=== PATIENT | male | born 1960 | race Caucasian/White ===

== ENCOUNTER 2024-09-01 02:51 | Inpatient (IN) | payer BC, SELFPAY ==
[2024-08-31 19:58] VITALS: BP 114/90
[2024-08-31 20:32] LABS: Hematocrit 39.3 % (39.0-52.0); Hemoglobin 13.4 g/dL (13.0-18.0); Mean Corp Hgb Conc. 34.1 g/dL (33.0-37.0); Mean Corpuscular Volume 91.4 fL (80.0-94.0); Nucleated Red Blood Cells % 0 % (-); Platelet Count 178 10^3/uL (130-400); Red Cell Dist. Width 12.5 % (11.5-14.5)
[2024-08-31 21:00] LABS: Troponin I < 0.012 ng/ml
--- NOTE | 2024-08-31 21:39 | ED.GENMED ---
History of Present Illness
General
Chief Complaint: Breathing Problem
Source: patient
Exam Limitations: none
Time Seen by Provider: 08/31/24 21:33
History of Present Illness
History of Present Illness:
64yoM with a history of chronic back pain presenting for evaluation of shortness of breath. Symptoms began 1 week ago. He reports being short of breath while at work causing him to go home from work early. He initially thought his symptoms were
related to alcohol use as he drank more alcohol He has had intermittent bouts of dyspnea throughout the week and again felt short of breath this morning. He denies any associated chest pain, dizziness, syncope, leg swelling.
Past History
Past History
ED Past Medical History: Other (BACK PAIN)
Social History
Tobacco: Non-smoker
Alcohol: Occasional
Drug: None
Personal: Single
Living: with family
Employment: Employed
Phy Exam
General Physical Exam
General Presentation: well appearing and no apparent distress
General Skin: warm and dry
General Habitus: normal
General Mental: alert
ENT Exam
ENT Exam: normocephalic
Cardiovascular Exam
Cardiovascular Exam: no edema, no murmur, normal peripheral pulses (2+ radial and DP pulses bilaterally) and irregularly irregular
Pulmonary Exam
Pulmonary Exam: lungs clear, no respiratory distress, no rales, no crackles, no rhonchi and no wheezing
Neurological Exam
Neurological Exam: alert
[place] Coma Scale
Eye Opening: Spontaneous
Verbal Response: Oriented
Motor Response: Obeys Commands
GCS Total Score: 15
Skin Exam
Skin Exam: normal color and warm/dry
Psychiatric Exam
Psychiatric Exam: normal mood/affect
Scores
Heart Failure Risk
Heart Failure Risk Score: Not Applicable
Course
Orders/Labs/Results
Orders:
Orders
08/31/24 19:56
Electrocardiogram (*1) Urgent
Reason for Study: Shortness of Breath
EKG- Treatment ONCE
08/31/24 20:02
CR Chest - 2 Views Urgent
Comment:
Reason For Exam: SOB
08/31/24 20:14
BNP [NT-proBNP] Urgent
Complete Blood Count/With Diff Urgent
Comprehensive Metabolic Panel Urgent
Magnesium Urgent
TSH Reflex To Free T4 Urgent
Troponin I Urgent
08/31/24 21:52
Cardiac Monitoring- Treatment ONCE
0.9% Sodium Chloride 1000 ml [Nss] 1,000 ml IV BOLUS
08/31/24 21:58
Metoprolol [Lopressor] 5 mg IV NOW STA
08/31/24 23:25
Metoprolol [Lopressor] 25 mg PO NOW STA
Abnormal Lab Results
08/31/24
20:14
RBC 4.30 L 10^6/uL
(4.70-6.10)
MCH 31.2 H pg
(27.0-31.0)
MPV 11.9 H fL
(7.4-10.4)
Absolute Monos (auto) 0.7 H 10^3/uL
(0.1-0.6)
Monocytes % 10.7 H %
(1.7-9.3)
Chloride 110 H mmol/L
(98-107)
BUN 24 H mg/dl
(9-20)
Glucose 112 H mg/dl
(70-99)
08/31/24 20:14
08/31/24 20:14
Vital Signs
Initial and Last Documented VS:
Initial Vital Signs
Temp Pulse Resp BP Pulse Ox
98.0 F 123 20 114/90 97
08/31/24 19:58 08/31/24 19:58 08/31/24 19:58 08/31/24 19:58 08/31/24 19:58
Last Documented Vital Signs
Temp Pulse Resp BP Pulse Ox
98.0 F 100 18 127/88 97
08/31/24 19:58 08/31/24 23:37 08/31/24 23:15 08/31/24 23:37 08/31/24 23:15
MDM/Problems Addressed
Differential Diagnosis Includes:
64yoM here with intermittent SOB x 1 week. No significant PMH. HR 123 on arrival. EKG from triage shows atrial flutter. No prior history of this. BP stable. He is well appearing and resting comfortably. No signs of volume overload on exam.
Differential diagnosis includes but is not limited to: Arrhythmia, thyroid dysfunction, electrolyte abnormality
Workup initiated in triage. Electrolytes and TSH within normal limits. Troponin undetectable. Chest x-ray is clear without pulmonary edema. IV Lopressor given for rate control as well as a dose of PO metoprolol. Will admit for further
management.
*Pulse Oximetry
SaO2: 97
Oxygen Mode of Delivery: Room air
Patient hypoxic: no (97%)
*EKG
Interpreted by ED Provider?: Yes
EKG Intrepretation Date: 08/31/24
Heart Rate: 114
Rate: tachycardiac
Rhythm: atrial flutter
[place]: normal axis
QRS Pattern: normal QRS
Ischemia: non-specific ST changes
*Critical Care Note
Total Time (30-74mins, 75-104mins- exclusive of procedures): Not Applicable
ED Attending Note
-
Portions of this chart may have been created with voice recognition software.� Occasional wrong word or��sound alike� substitutions may have occurred due to the inherent limitations of voice recognition software.
Discharge Plan
Departure
Patient Disposition: Admit
Presentation/result/management discussed w/ accepting MD/DO: Hospitalist
Discharge Problem:
New onset atrial flutter
Prescriptions:
No Action
cyclobenzaprine 10 MG tablet
10 mg PO TIDPRN PRN (Reason: pain)
cetirizine 10 MG tablet
10 mg PO DAILY
ibuprofen 800 MG tablet
800 mg PO DAILYPRN PRN (Reason: pain)
fluticasone propionate 1 SPRAY spray,suspension
1 spray intranasal DAILY
melatonin 10 MG capsule
10 mg PO HS
ascorbic acid (vitamin C) 500 MG capsule
500 mg PO DAILY
Referrals:
Charan Byers DO [Family Provider, Family Practice]
Interventions
Interventions:
*Risk Screen - Suicide Last Done: 08/31/24 23:10
*General Assessment Last Done: 08/31/24 19:58
*Neglect/Abuse Screening Last Done: 08/31/24 23:10
*ED- Fall Risk Assessment Last Done: 08/31/24 23:10
*ED COVID-19 Vaccine History Last Done: 08/31/24 23:10
*Nursing Disposition Last Done: 08/31/24 23:20
ED- Cardiac Assessment Last Done: 08/31/24 23:10
ED- Pulmonary Assessment Last Done: 08/31/24 23:10
Discharge Date and Time
Discharge Date/Time: 08/31/24 23:21
Print Language: UKRAINIAN
[2024-08-31 21:47] LABS: ALT (SGPT) 35 U/L (0-50); AST (SGOT) 27 U/L (17-59); Albumin 4.5 g/dl (3.5-5.0); Alkaline Phosphatase 48 U/L (38-126); Blood Urea Nitrogen 24 mg/dl (9-20); Calcium 9.6 mg/dl (8.4-10.2); Carbon Dioxide 27 mmol/L (22-30); Chloride 110 mmol/L (98-107); Glucose 112 mg/dl (70-99); Magnesium 2.2 mg/dl (1.6-2.3); Potassium 4.3 mmol/L (3.5-5.1); Sodium 141 mmol/L (135-145); Total Protein 7.0 g/dl (6.3-8.2); eGFR > 60.00
[2024-08-31 21:55] VITALS: BP 136/116
[2024-08-31 22:00] VITALS: BP 107/83; BP 127/88
[2024-08-31] MEDS: NSS 1000 IV (23:04)
[2024-08-31] MEDS: LOPRESSOR 5 MG IV (23:05)
[2024-08-31 23:08] VITALS: BMI 28.7
[2024-08-31] MEDS: LOPRESSOR 25 MG PO (23:37)
--- NOTE | 2024-09-01 02:23 | HPS.HSE ---
Family Physician
-
Family Physician: Charan Byers
Chief Complaint
-
Palpitations, SOB
History of Present Illness
Patient is a 64y M with no significant PMH who presents to ED complaining of palpitations, SOB and lightheadedness. Patient states that his symptoms initially started about one week ago. 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 He initially attributed his symptoms to heat / fatigue; however, they continued to occur even on cooler days / after dark. he reports sensation of lightheadedness / 'seeing spots', diaphoresis, racing heartbeat and SOB
with activity. His symptoms improve with rest and then recur with exertion. He had increasing frequency and severity of episodes throughout the weekend. This AM his symptoms occurred again and he presented to the ED for further evaluation,.
In the ED patient is noted to be in A-Flutter with variable AV block.
He has no prior history of A-Fib / A-Flutter.
Patient does note that he was on vacation at the [place] 2 weeks ago (just prior to symptom onset) and drank more alcohol than usual while on vacation.
He also underwent LESI on Saturday (at [facility]) for chronic back pain.
Medical History
Past Medical History
Past Medical History: Reports None
Additional Past Medical History:
Lumbar DDD
Past Surgical History: Reports Other
Additional Past Surgical History:
Knee Arthroscopy
Left Shoulder Surgery
Bilateral Hernia Repairs
Social History
Tobacco: Non-smoker
Alcohol: Occasional
Drug: None
Family History
Family History: Other (Mother: A-Fib)
Allergies / Home Medications
Allergies reflects when Allergies were last updated in [employer].
Home Medications with original date entered in [employer]
Allergy/Medication List:
Allergies
Allergy/AdvReac Type Severity Reaction Status Date / Time
No Known Allergies Allergy Verified 08/31/24 19:57
Home Medications
loratadine 10 mg tablet 10 mg PO DAILY 09/01/24
Review of Systems
-
History Source: Patient
A 12 point ROS was completed and negative except as noted: Yes
Constitutional: Reports Fatigue; Denies Fever or Chills
Respiratory: Reports Trouble Breathing; Denies Cough
Cardiac: Reports Diaphoresis and Palpitations; Denies Chest Pain
Abdomen/GI: Denies Abdominal Pain, Nausea or Vomiting
: Denies Dysuria or Frequency
Musculoskeletal: Denies Edema
Neurological: Reports Dizzy; Denies Headache
Psych: Denies Depression or Anxiety
Physical Exam
Vital Signs
Vital Signs
Temp Pulse Resp BP Pulse Ox
98.0 F 100 18 127/88 97
08/31/24 19:58 08/31/24 23:37 08/31/24 23:15 08/31/24 23:37 08/31/24 23:15
Physical Exam
General: Other (64y M in no acute distress.)
HEENT: Moist mucous membranes and PERRLA
Respiratory: Clear; No Wheezes, Rales or Rhonchi
Cardiac: S1/S2, Irregular Rhythm and Tachycardia; No Murmur
GI: Soft, Non Tender, Non Distended and Normal Bowel Sounds
Musculoskeletal: No Clubbing, No Cyanosis and No Edema
Neuro: AO x 3
Laboratory Results
-
08/31/24 20:14
08/31/24 20:14
Laboratory Results
Total Bilirubin 0.6 mg/dl (0.2-1.3) 08/31/24 20:14
AST 27 U/L (17-59) 08/31/24 20:14
ALT 35 U/L (0-50) 08/31/24 20:14
Alkaline Phosphatase 48 U/L (38-126) 08/31/24 20:14
Troponin I < 0.012 ng/ml 08/31/24 20:14
Impression/Plan
-
A/P: Patient is a 64y M with PMH significant for lumbar DDD who presents to ED complaining of one week of intermittent palpitations, lightheadedness and dyspnea with exertion.
Atrial Flutter with Variable AV Block
- Admit for further evaluation and treatment.
- Rates hovering around 100bpm after metoprolol IV and PO doses in the ED.
- Patient declines anticoagulation at this time - even in short term.
- Discussed potential for cardioversion and he also seems averse to this.
- Monitor on tele overnight.
- Continue metoprolol for rate control and adjust dose as needed.
- Echo in AM.
- Cardiology eval in AM for additional discussion / recommendations.
DVT Prophylaxis: SCDs
Code Status: Full
[2024-09-01 04:01] VITALS: BP 142/87
[2024-09-01] MEDS: NSS 1000 IV (05:05)
[2024-09-01 07:12] LABS: Hematocrit 40.6 % (39.0-52.0); Hemoglobin 13.3 g/dL (13.0-18.0); Mean Corp Hgb Conc. 32.8 g/dL (33.0-37.0); Mean Corpuscular Volume 93.5 fL (80.0-94.0); Platelet Count 164 10^3/uL (130-400); Red Cell Dist. Width 12.5 % (11.5-14.5)
[2024-09-01 07:16] VITALS: BP 133/91
--- NOTE | 2024-09-01 07:23 | W.PN.HOSP.TC ---
Today's Communication/Plan
-
NPO after midnight for ELIEZER cardioversion tomorrow
Assessment / Plan
Assessment / Plan
Physical Exam
General: Other (64y M in no acute distress.)
HEENT: Moist mucous membranes
Respiratory: Clear to Auscultation Bilaterally
Cardiac: S1/S2, Irregular Rhythm
GI: Soft, Non Tender, Non Distended and Normal Bowel Sounds
Musculoskeletal: No Cyanosis and No Edema
Neuro: AO x 3
Assessment/Plan
64y M with no significant PMH who presented to [facility] ED complaining of palpitations, shortness of breath and lightheadedness. Patient stated that his symptoms initially started about one week prior to presentation. 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 He initially attributed his symptoms to heat / fatigue; however, they continued to occur even on cooler days / after dark. He reported sensation of lightheadedness / 'seeing spots', diaphoresis,
racing heartbeat and shortness of breath with activity. His symptoms improve with rest and then recur with exertion. He had increasing frequency and severity of episodes throughout the weekend prior to presentation. On 08/31/24 morning, his
symptoms occurred again and he presented to the [facility] ED for further evaluation. In the [facility] ED, patient was noted to be in A-Flutter with variable AV block. He has no prior history of A-Fib / A-Flutter. Patient does note that he was on vacation at
the [place] 2 weeks prior to presentation (just prior to symptom onset) and drank more alcohol than usual while on vacation. He also underwent LESI on Wednesday August 28, 2024 (at [facility]) for chronic back pain.
Presentation with one week history of intermittent palpitations, lightheadedness and dyspnea with exertion
Atrial Flutter with Variable AV Block
- Rates hovering around 100bpm after metoprolol IV and PO doses in the ED.
- Eliquis started
- Patient is agreeable for ELIEZER cardioversion tomorrow morning as anesthesia unavailable this afternoon.
- Monitor on tele
- NPO after midnight
- Continue metoprolol for rate control and adjust dose as needed.
- Echo in AM.
- Cardiology eval in AM for additional discussion / recommendations.
History of Lumbar DDD
History of Knee Surgery
DVT Prophylaxis: SCDs. Eliquis.
Code Status: Full Code
Anticipated Discharge: 24 - 48 hours
Subjective/Interval History
-
Date of Service: September 01, 2024
Patient was seen and examined. He reported feeling okay, denied chest pain or any other complaints or symptoms.
Objective Data
-
Labs:
Laboratory Results
08/31/24 09/01/24
20:14 06:38
WBC 6.9 5.7
Hgb 13.4 13.3
Hct 39.3 40.6
Plt Count 178 164
Sodium 141 Pending
Potassium 4.3 Pending
Chloride 110 H Pending
Carbon Dioxide 27 Pending
BUN 24 H Pending
Creatinine 0.9 Pending
Glucose 112 H Pending
Calcium 9.6 Pending
Total Bilirubin 0.6
AST 27
ALT 35
Alkaline Phosphatase 48
Vital Signs:
Vital Signs
Temp Pulse Resp BP Pulse Ox
97.8 F 68 20 142/87 97
09/01/24 04:01 09/01/24 04:01 09/01/24 04:01 09/01/24 04:01 09/01/24 04:01
[2024-09-01] MEDS: LOPRESSOR 25 MG PO ×3 (07:24→22:12)
[2024-09-01 07:56] LABS: Blood Urea Nitrogen 20 mg/dl (9-20); Calcium 9.1 mg/dl (8.4-10.2); Carbon Dioxide 24 mmol/L (22-30); Chloride 111 mmol/L (98-107); Estimated Creatinine Clearance 93 ml/min; Glucose 101 mg/dl (70-99); HDL Cholesterol 41 mg/dl; LDL Cholesterol, Calculated 103 mg/dl; Magnesium 2.1 mg/dl (1.6-2.3); Potassium 4.5 mmol/L (3.5-5.1); Sodium 141 mmol/L (135-145); Very Low Density Lipoprotein 26 mg/dl (0-30); eGFR > 60.00
[2024-09-01 09:45] LABS: Glycohemoglobin (HgbA1c) 5.7 % (4.0-5.6)
--- NOTE | 2024-09-01 10:15 | CON.CAR ---
Addendum entered and electronically signed by Ludy Corrigan MD 09/01/24 18:41:
I saw and examined the patient.
The Sheet Metal Superintendent's note was reviewed and I agree with the note.
Comment: Patient seen and examined at bedside. Briefly is a 64-year-old gentleman with no significant past medical history other than lumbar disc disease who presented to the emergency room after complaints of palpitations and dyspnea on exertion
along with exertional lightheadedness soon after being away for August 21 weekend after drinking a significant amount alcohol found to be in rapid atrial flutter with RVR. Troponins have been negative. proBNP 311. Normal thyroid function test.
Vital signs and lab work reviewed. On exam patient is well-appearing, no acute distress, tachycardic, regular, normal S1 and S2, lungs are clear to auscultation bilaterally, no JVD PE, abdomen is soft, nontender, nondistended with active bowel
sounds, warm extremities without significant edema
Recommendations:
1. Extensive discussion was had with the patient in regards to what atrial flutter is and its potential risk for stroke and his symptoms likely related to the tachycardia. Plan for ELIEZER cardioversion in the morning. Described the procedure in
detail with the patient reviewing the risk and benefits and patient is agreeable to move forward. Plan to keep him n.p.o. after midnight tonight.
2. Initiated on Eliquis today along with beta-marilee. CHADS2 Vasc score is 0 however given upcoming cardioversion would plan for at least 3 to 4 weeks of full anticoagulation with determination then as an outpatient in case there is concern for
paroxysmal or persistent atrial flutter. I think would benefit from follow-up with electrophysiology as an outpatient with consideration for outpatient monitor if plan is to discontinue Eliquis at some point after a 4-week period.
3. Educated patient in regards to importance of alcohol cessation and at some point getting screened to rule out sleep apnea.
Ludy Corrigan MD, [facility], [facility]
Original Note:
Consultation
Consultation Request
Date/Time Consultation Requested: 09/01/2024
Date/Time Consultation Performed: 09/01/2024
Requesting Provider: Dr. Mcknight
Performing Provider: Nica Rivera PA-C for Dr. Corrigan
Reason for Consultation: Atrial flutter
Medical History
-
History of Present Illness:
Patient is a 64-year-old male with past medical history significant for lumbar disc disease who presented to emergency department on 08/31/2024 with complaints of palpitations, tachycardia, dyspnea on exertion and exertional lightheadedness x 1 week.
He [place] and was in the heat. He drank an 'excessive amount of alcohol' which is very unusual for him and was sitting most days in the hot sun. 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 He initially felt his symptoms were related to being dehydrated with the extreme hot days. Symptoms generally improved with rest but over the last several days have gotten worse
with less level of activity prompting him to come to emergency department for evaluation. He was found to be in atrial flutter with rapid ventricular response. He was given IV metoprolol in emergency department with improvement of heart rate.
Also given fluid bolus. Troponins negative. proBNP 311. TSH 3.03. Patient feels comfortable at rest but still notes palpitations and intermittent lightheadedness when he exerts himself around the room.
He denies any cardiac history.
Past medical history:
Lumbar disc disease
Seasonal allergies
Anxiety
Past Medical History
Past Medical History: Other (See HPI)
Past Surgical History: Orthopedic (Knee arthroscopy, left shoulder surgery) and Other (Bilateral hernia repairs)
Social History
Tobacco: Non-Smoker
Alcohol: Occasional
Drug: None
Personal: Other (Has significant other/girlfriend)
Living: With Family
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
Family History
Family History: Other (Mother with atrial fibrillation)
Allergies / Home Medications
Allergy/AdvReac Type Severity Reaction Status Date / Time
No Known Allergies Allergy Verified 08/31/24 19:57
�Medication �Instructions �Recorded �Confirmed �Type
ascorbic acid (vitamin C) 1,000 mg 1,000 mg PO DAILY 09/01/24 09/01/24 History
tablet (Vitamin C With Maggie Hips)
cyclobenzaprine 10 mg tablet 10 mg PO TID PRN back pain 09/01/24 09/01/24 History
ibuprofen 800 mg tablet 800 mg PO Q8H PRN back pain 09/01/24 09/01/24 History
loratadine 10 mg tablet 10 mg PO DAILY PRN allergies 09/01/24 09/01/24 History
multivitamin 1 tab PO DAILY 09/01/24 09/01/24 History
sertraline 50 mg tablet 50 mg PO DAILY 09/01/24 09/01/24 History
Review of Systems
-
History Source: Patient
All other systems: Negative unless noted
Physical Exam
Vital Signs
Temp Pulse Resp BP Pulse Ox
98.2 F 90 20 133/91 97
09/01/24 07:16 09/01/24 07:16 09/01/24 07:16 09/01/24 07:16 09/01/24 08:00
GEN: No distress, awake, Ox3
HEENT: supple, anicteric, mmm
LUNGS: CTA, no wheezes/rales
CV: Irregularly irregular, S1/S2, 1/6 syst murmur, no rub or gallop
ABD: soft, BS+, NT/ND
EXT: No edema, clubbing or cyanosis
NEURO: Gross non-focal
SKIN: No rash, warm, dry, pink
Lab Results
09/01/24 06:38
09/01/24 06:38
Troponin I < 0.012 ng/ml 08/31/24 20:14
Keh-W-Spyjsokkxst Pept 311 pg/ml 08/31/24 20:14
Impression / Plan
-
Family Physician: Charan Byers
Rocket Engine Component Mechanic: None prior to admission, initial consultation Dr. Corrigan
Impression:
Presented 08/31/2024 with palpitations/rapid heartbeat, dyspnea on exertion and lightheadedness x 1 week.
Atrial flutter with rapid ventricular response, new diagnosis
Lumbar disc disease
Seasonal allergies
Anxiety
Echo 09/01/2024: Pending
Plan:
Presented 08/31/2024 with palpitations/rapid heartbeat, dyspnea on exertion and lightheadedness x 1 week.
Atrial flutter with rapid ventricular response, new diagnosis
-Symptoms [place] drinking daily alcohol
-Heart rates have improved with initiation of low-dose beta-marilee however remains symptomatic upon exertion. Pending heart rate with restorationist of sinus rhythm could consider low-dose long-acting Toprol or diltiazem rather than Lopressor.
-Troponin negative, proBNP unremarkable
-Will check echocardiogram - pending
-Discussed addition of anticoagulation to reduce risk of stroke. Discussed patient will need to remain on for minimum of 4 weeks post cardioversion. [id number] score 0
-Will arrange for ELIEZER cardioversion on 09/02/2024
-Keep n.p.o. after midnight
- Discussed triggers of palpitations/atrial fibrillation flutter, avoidance of triggers including avoiding alcohol, excessive caffeine, staying well-hydrated
Plan discussed with patient, patient's girlfriend at bedside, nursing and hospitalist
Data Reviewed
-
EKG: Report Reviewed by me, Discussed with Physician, Discussed with Nurse, Discussed with Patient and Discussed with Family
Radiology: Report Reviewed by me, Discussed with Physician, Discussed with Nurse, Discussed with Patient and Discussed with Family
Labs: Labs Reviewed by me, Discussed with Physician, Discussed with Nurse, Discussed with Patient and Discussed with Family
Old Records: Reviewed
[2024-09-01 11:25] VITALS: BP 135/93
[2024-09-01] MEDS: ELIQUIS 5 MG PO ×2 (12:19→19:45)
[2024-09-01 15:17] VITALS: BP 124/74
--- NOTE | 2024-09-01 16:35 | CM ---
compensation consulting manager reviewed patient's chart and met with patient and patient lives with his finance, her son and mother, in a multilevel home, patient is independent with adl's and ambulation, no dme, patient drives, plan is to home no needs, cost of
Eliquis is $75 per month, one month free coupon provided to patient.
PCP: Dr Charan Byers
Pharmacy: [facility] in [place]
Plan; Home when stable.
[2024-09-01 19:22] VITALS: BP 130/94
[2024-09-01] MEDS: TYLENOL 650 MG PO (19:45)
[2024-09-01 22:41] VITALS: BP 128/87
[2024-09-02 04:00] VITALS: BP 117/83
[2024-09-02 05:59] VITALS: BMI 27.7
[2024-09-02] MEDS: ELIQUIS 5 MG PO (07:34)
[2024-09-02] MEDS: LOPRESSOR 25 MG PO ×2 (07:34→15:00)
[2024-09-02 07:38] VITALS: BP 121/87
[2024-09-02 08:15] LABS: Blood Urea Nitrogen 14 mg/dl (9-20); Calcium 9.2 mg/dl (8.4-10.2); Carbon Dioxide 25 mmol/L (22-30); Chloride 109 mmol/L (98-107); Estimated Creatinine Clearance 105 ml/min; Glucose 113 mg/dl (70-99); Potassium 4.5 mmol/L (3.5-5.1); Sodium 141 mmol/L (135-145); eGFR > 60.00
[2024-09-02 11:00] VITALS: BP 115/76
--- NOTE | 2024-09-02 11:06 | CM ---
Home when stable, no needs.
Plan; Home no needs when stable.
--- NOTE | 2024-09-02 12:12 | W.PN.HOSP.TC ---
Today's Communication/Plan
-
Discharge today
Assessment / Plan
Assessment / Plan
Physical Exam
General: Other (64y M in no acute distress.)
HEENT: Moist mucous membranes
Respiratory: Clear to Auscultation Bilaterally
Cardiac: S1/S2, Irregular Rhythm
GI: Soft, Non Tender, Non Distended and Normal Bowel Sounds
Musculoskeletal: No Cyanosis and No Edema
Neuro: AO x 3
Assessment/Plan
64y M with no significant PMH who presented to [facility] ED complaining of palpitations, shortness of breath and lightheadedness. Patient stated that his symptoms initially started about one week prior to presentation. 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 He initially attributed his symptoms to heat / fatigue; however, they continued to occur even on cooler days / after dark. He reported sensation of lightheadedness / 'seeing spots', diaphoresis,
racing heartbeat and shortness of breath with activity. His symptoms improve with rest and then recur with exertion. He had increasing frequency and severity of episodes throughout the weekend prior to presentation. On 08/31/24 morning, his
symptoms occurred again and he presented to the [facility] ED for further evaluation. In the [facility] ED, patient was noted to be in A-Flutter with variable AV block. He has no prior history of A-Fib / A-Flutter. Patient [place] (just prior to symptom onset) and drank more alcohol than usual while on vacation. He also underwent LESI on Wednesday August 28, 2024 (at [facility]) for chronic back pain.
Presentation with one week history of intermittent palpitations, lightheadedness and dyspnea with exertion
Atrial Flutter with Variable AV Block
- Rates hovering around 100bpm after metoprolol IV and PO doses in the ED.
- Eliquis started
- ELIEZER cardioversion on 09/02/24: ELIEZER with low normal LVEF, no significant valvular disease, and no thrombus. Successful Cardioversion with one shock at 200 J.
- Monitor on tele
- Continue beta marilee and Eliquis
- Cardiology eval
History of Lumbar DDD
History of Knee Surgery
DVT Prophylaxis: SCDs. Eliquis.
Code Status: Full Code
More than 30 minutes spent in discharge including
Final examination of the patient
Summarizing hospital stay
Instructions for continuing care to all relevant caregivers
Preparation of discharge records, prescriptions, and referral forms
Total time spent (in minutes): 40
Anticipated Discharge: Today
Subjective/Interval History
-
Date of Service: September 02, 2024
Patient was seen and examined. He denied any chest pain, shortness of breath or any other symptoms or complaints.
Objective Data
-
Labs:
Laboratory Results
09/02/24
07:13
Sodium 141
Potassium 4.5
Chloride 109 H
Carbon Dioxide 25
BUN 14
Creatinine 0.8
Glucose 113 H
Calcium 9.2
Vital Signs:
Vital Signs
Temp Pulse Resp BP Pulse Ox
98.4 F 83 20 115/76 97
09/02/24 11:00 09/02/24 11:00 09/02/24 11:00 09/02/24 11:00 09/02/24 11:00
I&O
09/01/24 09/02/24 09/03/24
06:59 06:59 06:59
Intake Total 480 / 480
Balance 480 / 480
--- NOTE | 2024-09-02 13:47 | W.PN.CARDCBS ---
Addendum entered and electronically signed by José Edwards MD 09/02/24 18:10:
I saw and examined the patient.
The Record Tabulating Clerk's note was reviewed and I agree with the note.
Comment:
GEN: No distress, awake, Ox3
HEENT: supple, anicteric, mmm
LUNGS: CTA, no wheezes/rales
CV: Reg, S1/S2, 1/6 syst LSB, no murmur
ABD: soft, BS+, NT/ND
EXT: No edema
NEURO: Gross non-focal
SKIN: No rash
PLan:
Results of ELIEZER/CV reviewed with patient. He is back in sinus rhythm with no further A-flutter. Will discharge on Toprol 50 mg daily and Eliquis 5 mg p.o. twice daily.
Discussed avoiding possible triggers for A-fib/flutter
We agreed if he has further episodes of a flutter would consider ablation at that time. Will arrange follow-up
Original Note:
Today's Communication / Plan
-
D/C to home
Work note and coupon card given to patient
Impression / Plan
-
Family Physician: Charan Byers
[employer] Services Manager: None prior to admission, initial consultation Dr. Corrigan
Impression:
Presented 08/31/2024 with palpitations/rapid heartbeat, dyspnea on exertion and lightheadedness x 1 week.
Atrial flutter with rapid ventricular response, new diagnosis
Lumbar disc disease
Seasonal allergies
Anxiety
Echo 09/01/2024: EF 50%, trace MR trace TR
ELIEZER 09/02/2024: Preliminary report preserved EF without JAE thrombus
Plan:
-Patient admitted with newly diagnosed paroxysmal atrial flutter and RVR.
-Patient had successful ELIEZER/CV on 09/02/2024
-[id number] score is 0 and patient will complete 1 month of OAC and can use the free sample card from Eliquis
-New to Eliquis 5 mg twice daily (age 64, Cre 0.8), E scribed to his pharmacy by me
-Patient is also new to Toprol XL 50 mg daily, E scribed to his pharmacy by me
-EF preserved by echo and ELIEZER
-Patient is considering following up with Dr. Cee at [facility] because that is his mother's ceo & board director, but he is also considering following up locally with Dr. Edwards
-Patient is stable for discharge to home
Progress Note - C[employer] And [employer] Services Manager
Subjective
Date of Service: September 02, 2024
Feels well, no more palpitations
Objective
Labs:
09/01/24 06:38
09/02/24 07:13
Labs
Hgb 13.3 g/dL (13.0-18.0) 09/01/24 06:38
Hct 40.6 % (39.0-52.0) 09/01/24 06:38
Plt Count 164 10^3/uL (130-400) 09/01/24 06:38
Sodium 141 mmol/L (135-145) 09/02/24 07:13
Potassium 4.5 mmol/L (3.5-5.1) 09/02/24 07:13
BUN 14 mg/dl (9-20) 09/02/24 07:13
Creatinine 0.8 mg/dL (0.7-1.3) 09/02/24 07:13
Glucose 113 mg/dl (70-99) H 09/02/24 07:13
Troponins
08/31/24
20:14
Troponin I < 0.012
Vital Signs and I&O:
Vital Signs
Temp Pulse Resp BP Pulse Ox
98.4 F 83 20 115/76 97
09/02/24 11:00 09/02/24 11:00 09/02/24 11:00 09/02/24 11:00 09/02/24 11:00
Vital Signs
Temp Pulse Resp BP Pulse Ox
98.4 F 83 20 115/76 97
09/02/24 11:00 09/02/24 11:00 09/02/24 11:00 09/02/24 11:00 09/02/24 11:00
Intake & Output
08/31/24 09/01/24 09/02/24 09/03/24
06:59 06:59 06:59 06:59
Intake Total 480 / 480
Balance 480 / 480
Physical Exam
Physical Exam
GEN: AAOx3
LUNGS: RA
CV: SR
--- NOTE | 2024-09-02 14:22 | W.DCSUMMARY ---
Discharge Summary
Discharge Data
Date of Admission: 09/01/24
Date of Discharge: 09/02/24
Total time spent discharging patient (in min): 40
-
Pending Results: No
Hospital Course
64 y/o male with with no significant past medical history who presented to the [facility] ED complaining of palpitations, shortness of breath and lightheadedness. Patient was found to have atrial flutter with rapid ventricular response. Patient was
started on Eliquis and beta marilee. On 09/02/24, ELIEZER showed low normal LVEF, no significant valvular disease, and no thrombus. Patient had successful synchronized direct current cardioversion performed with one shock at 200 joules.Patient was
feeling better and stable for discharge.
Discharge Plan
-
Patient Disposition: Home (Routine Discharge)
Discharge Diagnosis/Procedures: Presentation with one week history of intermittent palpitations, lightheadedness and dyspnea with exertion
Atrial Flutter with Variable AV Block status post ELIEZER with low normal LVEF, no significant valvular disease, and no thrombus, and successful Cardioversion with one shock at 200 J.
History of Lumbar Degenerative Disc Disease
History of Knee Surgery
Condition: Good
Diet: Low Fat, Low Cholesterol and Low Sodium
Activity: As tolerated
Driving Restrictions: No driving for 24 hours
Activity Restrictions/Additional Instructions:
You will need to follow-up with salesperson hosiery (within 1 month) to determine how long you need to continue Eliquis and plan going forward.
Alcohol cessation as discussed
At some point, you will need getting screened to rule out sleep apnea
Stand Alone Forms: Return to Work
Referrals:
Charan Byers DO [Family Provider, Family Practice] - in less than 1 week
José Edwards MD [Active, Cardiology] - in three to four weeks
Referral Note: Hospital Follow-Up of Cardioversion
Additional Discharge Medication Instructions: Metoprolol Succinate 50 mg daily and Eliquis 5 mg BID are new medications
Prescriptions:
New
Eliquis 5 mg Tablet
5 mg PO BID Qty: 60 11RF
metoprolol succinate [Toprol XL] 50 mg tablet extended release 24 hr
50 mg PO DAILY Qty: 30 11RF
Continued
loratadine 10 mg Tablet
10 mg PO DAILY PRN (Reason: allergies)
multivitamin Tablet
1 tab PO DAILY
cyclobenzaprine 10 mg Tablet
10 mg PO TID PRN (Reason: back pain)
ascorbic acid (vitamin C) [Vitamin C With Maggie Hips] 1,000 mg Tablet
1,000 mg PO DAILY
sertraline 50 mg Tablet
50 mg PO DAILY
Discontinued
ibuprofen 800 mg Tablet
800 mg PO Q8H PRN (Reason: back pain)
Discharge Orders:
Discharge Patient (As Directed); Ordered 09/02/24
Ordered By: Darnell Kothari
Discharge Date and Time
Discharge Date/Time: 09/02/24 16:14
Print Language: SYRIAC
[2024-09-02 14:45] VITALS: BP 120/78
== END 2024-09-02 16:14 | disposition home or self-care (01) | DRG 310 ==
LOC: 4 WEST ACU 02:51
PROVIDERS: Emergency Medicine; Student in an Organized Health Care Education/Training Program; ADMITTING PHYSICIAN Hospitalist; ATTENDING PHYSICIAN Hospitalist; EMERGENCY PHYSICIAN Emergency Medicine; FAMILY PHYSICIAN Family Medicine; OTHER PHYSICIAN Internal Medicine Interventional Cardiology
PROC: B24BZZ4 Ultrasonography of Heart with Aorta, Transesophageal (ICD-10-PCS; 2024-09-02)
PROC: 5A2204Z Restoration of Cardiac Rhythm, Single (ICD-10-PCS; 2024-09-02)
DX: I48.92 Unspecified atrial flutter (principal); I44.30 Unspecified atrioventricular block; M51.369 Other intervertebral disc degeneration, lumbar region without mention of lumbar back pain or lower extremity pain; F41.9 Anxiety disorder, unspecified; G89.29 Other chronic pain; Z79.899 Other long term (current) drug therapy
CPT/HCPCS: 71046; 80048; 80053; 80061; 83036; 83735; 83880; 84443; 84484; 85025; 85027; 92960; 93005; 93306; 93312; 93320; 93325; 99285